=== PATIENT | female | born 1985 | race Caucasian/White ===

== ENCOUNTER → 2017-11-21 09:08 | Outpatient (CLI) | payer BC, SELFPAY ==
[2017-11-21 11:34] LABS: Hematocrit 32.5 % (37-47); Hemoglobin 10.5 g/dl (12.0-15.0); Mean Corp Hgb Conc 32.3 g/gl (32-36); Mean Corpuscular Hgb 29.1 pg (27.0-32.0); Platelet Count 257 K/mm3 (150-450); RBC Distribution Width CV 13.3 % (11.6-14.6); RBC Distribution Width SD 42.5 fl (35.1-43.9); Red Blood Count 3.61 M/mm3 (4.2-5.4); White Blood Count 6.3 K/mm3 (4.4-11.0)
[2017-11-21 11:36] LABS: Glucose Challenge Gest 1H 50g 99 mg/dL (70-140); Scan Indicated on CBC? Y/N NO
== END ==
PROVIDERS: Visit Provider Obstetrics & Gynecology
DX: Z34.83 Encounter for supervision of other normal pregnancy, third trimester (principal)
CPT/HCPCS: 36415; 82950; 85027

== ENCOUNTER → 2018-01-16 16:11 | Outpatient (CLI) | payer BC, SELFPAY ==
[2018-01-16 21:24] LABS: Group B Strep DNA By PCR Negative (Negative); Internal Control PASS; Probe Check PASS; Specimen Processing Control PASS
== END ==
PROVIDERS: Visit Provider Obstetrics & Gynecology
DX: Z36.85 Encounter for antenatal screening for Streptococcus B (principal)
CPT/HCPCS: 87081; 87653

== ENCOUNTER → 2018-01-23 11:06 | Outpatient (CLI) | payer BC, SELFPAY ==
[2018-01-23 11:35] LABS: ROM Internal Control Test YES-OK TO RESULT pt. (Internal QC)
[2018-01-23 11:36] LABS: ROM Patient Test Negative (Negative)
== END ==
PROVIDERS: Visit Provider Obstetrics & Gynecology
DX: Z34.83 Encounter for supervision of other normal pregnancy, third trimester (principal)
CPT/HCPCS: 84112

== ENCOUNTER 2018-01-31 02:20 | Inpatient (IN) | payer BC, SELFPAY ==
[2018-01-31 03:47] VITALS: BMI 31.6
[2018-01-31] MEDS: Lactated Ringers 1,000 ML 50 ML IV ×3 (04:05→11:12)
[2018-01-31 05:31] LABS: Hematocrit 30.8 % (37-47); Hemoglobin 9.5 g/dl (12.0-15.0); Mean Corp Hgb Conc 30.8 g/gl (32-36); Mean Corpuscular Volume 77.8 fL (81-99); Mean Platelet Vol. 10.2 fl (6.2-12.0); Platelet Count 196 K/mm3 (150-450); RBC Distribution Width CV 16.1 % (11.6-14.6); RBC Distribution Width SD 45.8 fl (35.1-43.9); Red Blood Count 3.96 M/mm3 (4.2-5.4); White Blood Count 6.4 K/mm3 (4.4-11.0)
[2018-01-31 05:32] LABS: Scan Indicated on CBC? Y/N NO
[2018-01-31] MEDS: fentaNYL-bupivacaine (epidural) 100 ML BAG EPIDURAL (09:38)
[2018-01-31] MEDS: Ondansetron 4 MG/2 ML Vial IV (09:59)
[2018-01-31] MEDS: Oxytocin 30 units/NS 500 ml 30 UNITS/500 ML IV.SOLN IV (11:11)
[2018-01-31] MEDS: Oxytocin 30 units/NS 500 ml 30 UNITS/500 ML IV.SOLN 334 UNITS IV (13:39)
--- NOTE | 2018-01-31 13:56 | PCM.OB.VAG ---
Vaginal Delivery Maternal Presentation: Active Labor 38w3d ega in active labor Amniotic Membrane Rupture Type: Artificial Rupture of Membrane time: 0900 Amniotic Fluid Description: Clear Final MICKIE: 02/11/18 Final MICKIE Source: US <20 weeks Gestational age: 38 Weeks and 3 Days Date of Procedure: 01/31/18 Pre-Operative Diagnosis: Labor Post-Operative Diagnosis: same Surgery/ Procedure Performed: Spontaneous Vaginal Delivery Anesthesiologist: Shade Patel Type of Anesthesia: Epidural Description of Procedure: Shanti progressed to FD with pitocin augmentation. She pushed over 3 contractions to deliver a live male . There was a loose nuchal cord which was reduced prior to delivery of the shoulders. There was a modest shoulder dystocia which was relieved with Rosie maneuvers and steady downward traction. Apgars were 7/8. Pediatrics was present at the delivery. The placenta was delivered spontaneously intact with a centrally located #VC. The uterus contracted well/. The cervix, vagina, and perineum were intact. Sponge counts were correct. Presentation: Vertex Placental Delivery Description: Spontaneous Placenta Disposition: [facility] Percentage of Placenta Abruption: 0 Cord Vessel Description: 3 Vessels Cord Entanglement: Around neck x 1, loose Drain: Ramos to straight drain Estimated Blood Loss: 250cc A gender: Male (1 minute): 7 (5 minute): 8 Episiotomy Description: None Laceration: None Medications given after delivery: IV Pitocin Complications: None
--- NOTE | 2018-01-31 14:02 | DCINST_ITS ---
Discharge Diet: No Restrictions Discharge Activity: Return to Normal Activity, May Drive, May Shower Return to work on:: 04/03/18 May resume sexual activity in: 4-6 weeks Call your doctor if your incision/area has: Sudden Increased Bleeding, Foul Smelling Discharge Call your doctor if you observe: Fever of 101 or Higher, Inability to urinate, Inability to have a bowel movement, Using more than one pad per hour, Shortness of breath, Chest pain, Calf discomfort, Uncontrolled pain Additional Instructions: If you experience any of the following, contact your healthcare provider. * Bleeding that soaks a pad every hour for 2 hours * Fever 100.4 or higher * Unrelieved incision or abdominal pain * Swelling, redness, discharge or bleeding from your incision or episiotomy site * Your incision begins to separate * Problems urinating (including inability to urinate or burning while urinating) . * Visual changes * Severe headache * Flu-like symptoms * Pain or redness in one of both of your breasts * Pain, warmth, tenderness or swelling in your legs, especially the calf area * Frequent nausea and vomiting * Symptoms of depression or anxiety If you experience any of the following, call 911 or go to the nearest Emergency Room. * Chest pain * Problems breathing * Seizure activity * Partial or complete paralysis of a body part, slurred speech, weakness or drooping of the face, or a sudden inability to walk or hold your balance Allergies/Adverse Reactions: Allergies No Known Allergies Allergy (Verified 01/31/18 03:49) Medications to take at Discharge Ibuprofen 600 mg PO 4X/DAY #30 tab 01/31/18 Vits 1 tab PO DAILY 01/31/18 The following prescriptions were given: Ibuprofen 600 mg PO 4X/DAY #30 tab Please Follow Up With: Yudy Tsai MD When: 6 weeks Test Results: Proposed Discharge Date: 02/02/18
[2018-01-31] MEDS: Oxytocin 30 units/NS 500 ml 30 UNITS/500 ML IV.SOLN 167 UNITS IV (14:09)
[2018-01-31] MEDS: 0.9% Saline Lock 10 ML Syringe IV (15:19)
[2018-01-31 17:19] VITALS: BP 136/82; PULSE 88; RESP 16; TEMP 36.8
[2018-01-31 20:30] VITALS: BP 139/82; PULSE 86; RESP 18; TEMP 36.7
[2018-02-01 00:05] VITALS: BP 137/81; PULSE 75; RESP 16; TEMP 36.3
[2018-02-01 04:50] VITALS: BP 137/92; PULSE 85; RESP 16; TEMP 36.3
[2018-02-01] MEDS: Hydrocortisone 2.5% Crm 1 APPLIC TOPICAL (04:53)
[2018-02-01 06:28] LABS: Hematocrit 29.5 % (37-47); Hemoglobin 9.1 g/dl (12.0-15.0); Mean Corp Hgb Conc 30.8 g/gl (32-36); Mean Corpuscular Hgb 24.3 pg (27.0-32.0); Mean Corpuscular Volume 78.7 fL (81-99); Mean Platelet Vol. 10.4 fl (6.2-12.0); Platelet Count 213 K/mm3 (150-450); RBC Distribution Width CV 16.2 % (11.6-14.6); RBC Distribution Width SD 44.9 fl (35.1-43.9); Red Blood Count 3.75 M/mm3 (4.2-5.4); White Blood Count 7.9 K/mm3 (4.4-11.0)
[2018-02-01 06:32] LABS: Scan Indicated on CBC? Y/N NO
--- NOTE | 2018-02-01 07:25 | PCM.PN.OB ---
Subjective: PPD#1 Reports cervix changed after about 1 hr of walking and 45 min on birthing ball. Able to get epidural. Reports shoulder dystocia. 9# 3 oz. her first baby was 9# 7 oz. Happy with delivery. Doing well nursing. No concerns. States very minimal bleeding. - Physical Exam General: Alert, Oriented x3, Cooperative, No apparent distress HEENT: Atraumatic Neck: Supple Abdomen: Soft - Fundus firm NT inferior to umbilicus Neurological: Cranial nerves II-XII grossly intact Psych/Mental Status: Normal Affect Vital Signs Temp Pulse Resp BP 97.4 F L 85 16 137/92 H 02/01/18 04:50 02/01/18 04:50 02/01/18 04:50 02/01/18 04:50 Oxygen Delivery Method Room Air Weight: 86.273 kg Body Mass Index (BMI) 31.6 Intake and Output for Last 24 Hours 01/30/18 01/31/18 02/01/18 23:59 23:59 23:59 Intake Total 2571 / 2571 Output Total 1525 / 1525 500 / 500 Balance 1046 / 1046 -500 / -500 Laboratory Tests Past 24 Hrs 02/01/18 06:15 WBC 7.9 RBC 3.75 L Hgb 9.1 L Hct 29.5 L MCV 78.7 L MCH 24.3 L MCHC 30.8 L RDW 16.2 H RDW Differential 44.9 H Plt Count 213 MPV 10.4 Medical Necessity - Tobacco Use Smoking Status: Never smoker Assessment/Plan PPD#1 Stable pp.. continue care. Potential dischg later today if baby is released and if patient requests.
[2018-02-01 08:30] VITALS: BP 143/92; PULSE 68; RESP 16; TEMP 36.7
--- NOTE | 2018-02-01 09:13 | NURSING ---
0845 pt bp sl elevated; pt denies any headache, blurry vision or epigastric pain; reflexes +2 and no clonus
[2018-02-01 10:00] VITALS: BP 134/87
--- NOTE | 2018-02-01 11:01 | NURSING ---
bp's called and reported to dr Tsai office nurse Joellen- returned call no new orders. pt educated on s/s to report for Pre E
[2018-02-01 14:30] VITALS: BP 134/80; PULSE 78; RESP 16; TEMP 36.8
--- NOTE | 2018-02-01 15:44 | NURSING ---
1500 discharge talk done; pt verbalizes understanding; pt denies need for any further or maternal care teaching; waiting for bili results on infant
--- NOTE | 2018-02-01 16:29 | NURSING ---
1630 placed in car seat per parents; bracelet number matches; dc to home
--- NOTE | 2018-02-01 16:30 | NURSING ---
pt has appt for infant in morning for check up and bili draw
== END 2018-02-01 16:30 | disposition home or self-care (01) | DRG 775 ==
PROVIDERS: Obstetrics & Gynecology; Admitting Provider Obstetrics & Gynecology; Visit Provider Obstetrics & Gynecology
DX: O66.0 Obstructed labor due to shoulder dystocia (principal); O87.2 Hemorrhoids in the puerperium; O69.81X0 Labor and delivery complicated by cord around neck, without compression, not applicable or unspecified; Z3A.38 38 weeks gestation of pregnancy; Z37.0 Single live birth
CPT/HCPCS: 36415; 59050; 85027; 86850; 86900; 99218; J7120; A4216; G0378; J2405

== ENCOUNTER 2018-02-06 18:16 | Outpatient (CLI) | payer BC, SELFPAY | END 2018-02-06 19:10 | disposition home or self-care (01) | LOC: WPOUT 18:20 → WP 18:21 | PROVIDERS: Family Provider Obstetrics & Gynecology; Visit Provider Obstetrics & Gynecology | DX: O92.79 Other disorders of lactation (principal) | CPT/HCPCS: 96152 ==

== ENCOUNTER → 2018-03-23 18:44 | Outpatient (CLI) | payer BC, SELFPAY ==
[2018-03-28 08:21] LABS: HPV Reflexed? NOT INDICATED
== END ==
PROVIDERS: Visit Provider Obstetrics & Gynecology
DX: Z12.4 Encounter for screening for malignant neoplasm of cervix (principal)
CPT/HCPCS: 88175; G0145

== ENCOUNTER 2018-05-03 06:02 | Day surgery (SDC) | payer BC, SELFPAY ==
--- NOTE | 2018-05-03 | FALS_PTH ---
PATIENT: ZOE MALDONADO LOC: [facility] [place] U#:[id number] AGE/SX: 32/F ROOM: RE05/03/[address]: Dr. Yudy Tsai MD : [id number] BED: DIS: 05/03/2018 SPEC #: [id number] RECD: 05/03/18 13:31 STATUS: DAVIDA RECarmelo #: [id number] MAXINE: 05/03/18 00:[address]: Yudy Tsai DEPT: SURGICAL PATHOLOGY RECD BY: Andrei Ch ENTERED: 05/03/18 13:31 SP TYPE: FALL TUBES OTHR DR: MD Dr. Maliha Andrade MD Tissues: Fallopian tube Procedures: Surgery Specimen Level II HEADER OPERATION: Laparoscopic salpingectomy PRE-OP DIAGNOSIS: Sterilization request TISSUE SUBMITTED: Bilateral fallopian tubes MICROSCOPIC DIAGNOSIS Bilateral fallopian tubes, salpingectomy: Bilateral fallopian tubes including fimbrial ends, no pathologic diagnosis. LAURIE:darren 05/04/18 MICROSCOPIC DESCRIPTION Slides are reviewed. GROSS DESCRIPTION Received is one container labeled with the patient's name and designated bilateral fallopian tubes. The specimen consists of bilateral fallopian tubes including fimbrial ends measuring 5 cm in length and 0.5 cm in diameter and 4.5 cm in length and 0.6 cm in diameter. Sections do not reveal any mass lesion. The fallopian tubes are not identified as right or left. Sections reveal unremarkable cut surfaces. Boiler/Chiller Operator sections are submitted in two cassettes with each cassette containing one fallopian tube. / LAURIE:darren 05/03/18 TC:4 CPT: 65835 x2
[2018-05-03 06:26] VITALS: BP 126/79; PULSE 79; RESP 16; TEMP 36.9; O2SAT 99; BMI 27.3
[2018-05-03 06:57] LABS: Internal QC Validated? YES +Cl - CLEAR BKGD; Pregnancy, Urine Negative Negative
[2018-05-03] MEDS: Cefazolin 2 GM in 0.9% Normal Saline 100 ML IV (07:23)
--- NOTE | 2018-05-03 07:58 | PCM.DC.TUB ---
Discharge Diet: No Restrictions May resume sexual activity in: 1-2 weeks Lifting Restrictions: Limit to 10 # for two - four weeks. Additional Activity Instructions:: Ambulate often the next week after surgery. Nothing in the vagina for 5 days. Call your doctor if you observe: Fever of 101 or Higher, Inability to have a bowel movement, Uncontrolled pain Change Dressing in (Days):: 4 Remove Dressing in (days):: 4 Cleanse incision/area with: Soap & Water, Keep Dressing Clean & Dry Allergies/Adverse Reactions: Allergies No Known Allergies Allergy (Verified 04/26/18 13:38) Medications to take at Discharge omega-3 fatty acids 1,000 mg capsule 3,000 mg PO QDAY cap 03/05/18 Ibuprofen 600 mg PO PRN PRN 04/26/18 L.acidoph,Paracasei, B.lactis [Probiotic] 1 each PO DAILY 04/26/18 Multivit-Min/Iron/Folic/Lutein [Centrum Silver Women Tablet] 1 each PO DAILY 04/26/18 Oxycodone HCl/Acetaminophen [Percocet 5-325] 1 - 2 tablet PO Q6H PRN PRN 7 Days #30 tablet 05/03/18 The following prescriptions were given: Oxycodone HCl/Acetaminophen [Percocet 5-325] 1 - 2 tablet PO Q6H PRN PRN 7 Days #30 tablet PRN Reason: Mod-Severe Pain (4-10) Primary Care Physician: Maliha Garcia MD [Primary Care Provider] - Test Results: Test results from this visit will be discussed in further detail at your follow-up appointment, if applicable. Please Follow Up With: Yudy Tsai MD - [phone] When: Please call with an update in 7 days. Please Follow Up With: Jimmy Inman MD When: 1-2 wks for postop check up Proposed Discharge Date: 05/03/18
--- NOTE | 2018-05-03 08:02 | DCINST_ITS ---
Discharge Diet: No Restrictions May resume sexual activity in: 1-2 weeks Lifting Restrictions: Limit to 10 # for two - four weeks. Additional Activity Instructions:: Ambulate often the next week after surgery. Nothing in the vagina for 5 days. Call your doctor if you observe: Fever of 101 or Higher, Inability to have a bowel movement, Uncontrolled pain Change Dressing in (Days):: 4 Remove Dressing in (days):: 4 Cleanse incision/area with: Soap & Water, Keep Dressing Clean & Dry Allergies/Adverse Reactions: Allergies No Known Allergies Allergy (Verified 04/26/18 13:38) Medications to take at Discharge omega-3 fatty acids 1,000 mg capsule 3,000 mg PO QDAY cap 03/05/18 Ibuprofen 600 mg PO PRN PRN 04/26/18 L.acidoph,Paracasei, B.lactis [Probiotic] 1 each PO DAILY 04/26/18 Multivit-Min/Iron/Folic/Lutein [Centrum Silver Women Tablet] 1 each PO DAILY 04/26/18 Oxycodone HCl/Acetaminophen [Percocet 5-325] 1 - 2 tablet PO Q6H PRN PRN 7 Days #30 tablet 05/03/18 The following prescriptions were given: Oxycodone HCl/Acetaminophen [Percocet 5-325] 1 - 2 tablet PO Q6H PRN PRN 7 Days #30 tablet PRN Reason: Mod-Severe Pain (4-10) Primary Care Physician: Maliha Garcia MD [Primary Care Provider] - Test Results: Test results from this visit will be discussed in further detail at your follow- up appointment, if applicable. Please Follow Up With: Yudy Tsai MD - [phone] When: Please call with an update in 7 days. Please Follow Up With: Jimmy Inman MD When: 1-2 wks for postop check up Proposed Discharge Date: 05/03/18
[2018-05-03] MEDS: Bupiv/Epi 0.5% Mpf 30 ML Vial (08:13)
--- NOTE | 2018-05-03 08:16 | PCM.OPRPT ---
Problem List (1) Umbilical hernia Status: Acute Qualifiers: Obstruction and gangrene presence: without obstruction or gangrene Report of Operation Date of Procedure: 05/03/18 Pre-Operative Diagnosis: Umbilical hernia without obstruction Post-Operative Diagnosis: Same Surgery/Procedure Performed:: Umbilical hernia repair with mesh Type of Anesthesia:: General Anesthesiologist: Prince Nevarez Estimated Blood Loss (mL): < 25 cc Fluids Replaced: 1 l lr Description of Procedure: Patient was brought into the operating room placed in [facility] by Dr. Tsai her abdomen was sterilely prepped and draped in the usual fashion. Dr. Tsai did her surgery to remove the fallopian tubes when she was completed where she had made her incision at the umbilicus I had lengthen both in the lateral right and left lateral position. I detached the umbilical skin from the umbilical hernia and placed the umbilical hernia back into its preperitoneal space. I created a preperitoneal window with use of electrocautery. I was then able to fashion a small ventral X ST hernia patch into the wound and I circumferentially tacked it to the surrounding fascia with #1 Nurolon's. The umbilical skin was still attached down towards the fascia in the superior aspect where the hernia was located and I did not need to use a tacking suture. I injected more local into the fascia the wound was then brought together with deep dermal sutures of 3-0 Vicryl in a running 4-0 Monocryl sterile dressings were applied and the patient tolerated this part of the procedure well. The other skin incisions were also closed with subcuticular stitches of 4-0 Monocryl. - Admit VTE Documentation VTE Present on Admission: No VTE Mechan Device Prophylaxis: SCD's VTE Pharm Prophylaxis ordered?: No Reason prophylaxis not ordered:: Treatment Not Indicated
--- NOTE | 2018-05-03 08:18 | DCINST_ITS ---
Discharge Diet: No Restrictions Discharge Activity: Return to Normal Activity, May Drive - when you are no longer taking narcotic pain medications., May Shower - with the bandage in place 1-2 days after surgery. May resume sexual activity in: 1-2 weeks Lifting Restrictions: 20 pounds for 8 weeks. Additional Activity Instructions:: Ambulate often the next week after surgery. Nothing in the vagina for 5 days. Call your doctor if your incision/area has: Continuous Slow Oozing, Sudden Increased Bleeding, Increased Pain/ Swelling, Increased Redness, Foul Smelling Discharge Call your doctor if you observe: Fever of 101 or Higher, Inability to have a bowel movement, Uncontrolled pain Suture Line Care: Avoid Pulling/Pushing, Avoid Pinching/Bending Change Dressing in (Days):: 4 Remove Dressing in (days):: 4 Cleanse incision/area with: Soap & Water, Keep Dressing Clean & Dry Additional Dressing/Incision Instructions:: Leave the operative bandage on for 2-3 days. When you remove the bandage, leave the steri-strips on place until your follow up appointment or they fall off. Allergies/Adverse Reactions: Allergies No Known Allergies Allergy (Verified 04/26/18 13:38) Medications to take at Discharge omega-3 fatty acids 1,000 mg capsule 3,000 mg PO QDAY cap 03/05/18 Ibuprofen 600 mg PO PRN PRN 04/26/18 L.acidoph,Paracasei, B.lactis [Probiotic] 1 each PO DAILY 04/26/18 Multivit-Min/Iron/Folic/Lutein [Centrum Silver Women Tablet] 1 each PO DAILY 04/26/18 Oxycodone HCl/Acetaminophen [Percocet 5-325] 1 - 2 tablet PO Q6H PRN PRN 7 Days #30 tablet 05/03/18 The following prescriptions were given: Oxycodone HCl/Acetaminophen [Percocet 5-325] 1 - 2 tablet PO Q6H PRN PRN 7 Days #30 tablet PRN Reason: Mod-Severe Pain (4-05/09) Primary Care Physician: Maliha Garcia MD [Primary Care Provider] - Test Results: Test results from this visit will be discussed in further detail at your follow- up appointment, if applicable. Please Follow Up With: Jimmy Inman MD - [phone] When: Plan to have a follow up appointment in 7 days. Call to schedule. Proposed Discharge Date: 05/03/18
--- NOTE | 2018-05-03 08:39 | OP.PCM_ITS ---
Operative Report Date of Procedure: 05/03/18 PROCEDURE: Laparoscopic Bilateral Salpingectomy ADDITIONAL PROCEDURE PER Jaison Inman MD: Umbilical herniorrhapy PREOPERATIVE DIAGNOSIS: Sterilization request POSTOPERATIVE diagnosis: Sterilization request Surgeon: Yudy Tsai MD Anesthesia: general anesthesia. Chuy Lopes CRNA EBL: minimal Complications: None Drains: Red Escobar catheter used to drain the bladder prior to initiation of the case Fluids: LR replacement Findings; Normal appearing, anteverted uterus. Fallopian tubes and ovaries are WNL. Gross inspection of bowel, omentum WNL. photos were taken of the uterus and ovaries after Bilateral salpingectomy Narrative account: After the risks, benefits, alternatives of procedure had been reviewed with the patient, informed consent was obtained. The patient was taken back to the Operating room with an IV running. she was positioned on the operating table in dorsal supine position, where she was given general anesthesia. Once asleep she was repositioned to the dorsal lithotomy position and prepped and draped in the usual sterile fashion with arms tucked at this sides. A red Escobar catheter was used to drain the bladder prior to initiating the case. A sponge stick was placed in the vagina to allow manipulation of the uterus and cervix during the case. Attention was then turned to the anterior abdominal wall where 0.25 % Marcaine with epinephrine was instilled at the suprapubic and infraumbilical skin and at a point midway between in the midline. Skin incisions were then created in the midline at the suprapubic skin and at the infraumbilical skin and midway between the two. While maintaining upward traction of the anterior a bdominal wall a Veress needle was inserted through the umbilical incision into the peritoneal cavity. There was free drop of saline, low opening pressure and free flow of CO2 noted. Once the intraabdominal pressure had reached 12 mm of mercury the Veress needle was removed and a bladeless 5 mm trocar was placed through infraumbilical skin incision into the peritoneal cavity. Correct placement was confirmed using the scope. Under direct visualization then with the patient in Trendelenburg position, a bladeless 5 mm trocar was inserted in through suprapubic skin incision into the peritoneal cavity and at a point midway between the infraumbilical and suprapubic trocars. The uterus as anteverted and both ovaries and fallopian tubes were WNL. The R fallopian tube was grasped and retracted medially and using a LigaSure device the fallopian tube was excised from the ovary and mesosalpinx. Excellent hemostasis was noted at the excision site. The R fallopian tube was brought through the suprapubic trocar and set aside for later pathology review. In a similar manner the L fallopian tube was grasped and retracted medially and the fallopian tube was excised and removed from the abdominal cavity through the suprapubic trochar. The Fallopian tubes were sent to pathology. Excellent hemostasis was noted by visualization of the pelvis, ovaries, and remaining mesosalpinx. Photo s were taken of the uterus and Bilateral remaining ovaries and of the RUQ and liver edge. At this point the the BILATERAL PARTICAL SALPINGECTOMY portion of the procedure was terminated. For the remainder of the case: please see separate operative note by Dr Jaison Inman. Medications given preop and intraoperatively included: 6 cc of 1/2 % Marcaine with epinephrine --used as a subcutaneous block. For a complete listing of medications given preop and intraop , please see the anesthesia record.
[2018-05-03 08:43] VITALS: BP 126/79; BP 135/79; PULSE 65; RESP 16; TEMP 36.8; O2SAT 99
[2018-05-03 08:45] VITALS: BP 126/79; BP 132/76; PULSE 60; RESP 16; O2SAT 100
[2018-05-03 09:00] VITALS: BP 126/79; BP 127/79; PULSE 65; RESP 16; O2SAT 100
[2018-05-03 09:11] VITALS: BP 126/79; BP 131/79; PULSE 61; RESP 16; TEMP 36.1; O2SAT 100
[2018-05-03 10:48] VITALS: BP 125/72; BP 126/79; PULSE 57; RESP 16; TEMP 37.1; O2SAT 99
== END 2018-05-03 10:51 | disposition home or self-care (01) ==
LOC: SDC 06:03 → AC 06:04
PROVIDERS: Anesthesiology; Surgery; Family Provider Internal Medicine; PCP Internal Medicine; Visit Provider Obstetrics & Gynecology
PROC: (CPT 58661; principal; 2018-05-03 07:15)
PROC: (CPT 49585; 2018-05-03 07:15)
DX: Z30.2 Encounter for sterilization (principal); K42.9 Umbilical hernia without obstruction or gangrene; I10 Essential (primary) hypertension
CPT/HCPCS: 49585; 58661; 81025; 88302; J7120; C1781; J2405